=== PATIENT | female | born 1980 | race Caucasian/White ===

== ENCOUNTER 2019-01-12 10:09 | Emergency (ER) | payer OTHER ==
[2019-01-12 13:20] VITALS: BP 136/81
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
== END 2019-01-12 13:49 | disposition home or self-care (01) ==
LOC: UCEAST 10:09
DX: S13.4XXA Sprain of ligaments of cervical spine, initial encounter (principal); V43.52XA Car driver injured in collision with other type car in traffic accident, initial encounter; Y92.410 Unspecified street and highway as the place of occurrence of the external cause; M25.551 Pain in right hip
CPT/HCPCS: 72020; 72050; 99211; G0463